=== PATIENT | female | born 1995 | race Caucasian/White ===

== ENCOUNTER 2017-03-18 09:51 | Emergency (ER) | payer OTHER ==
[~2017-03-18] VITALS: Ht 157.5 cm; Wt 59.0 kg
[2017-03-18] MEDS ORDERED: IBUP-1546 PO (09:59)
[2017-03-18 12:08] VITALS: BP 109/71
== END 2017-03-18 12:35 | disposition home or self-care (01) ==
LOC: EMS 09:57
DX: S63.502A Unspecified sprain of left wrist, initial encounter (principal); V00.131A Fall from skateboard, initial encounter; Y93.I9 Activity, other involving external motion; Y92.89 Other specified places as the place of occurrence of the external cause; Y99.8 Other external cause status
CPT/HCPCS: 99284